=== PATIENT | female | born 1960 | race Caucasian/White ===

== ENCOUNTER 2022-05-05 19:25 | Emergency (ER) | payer MEDICARE ==
[~2022-05-05] VITALS: Ht 154.9 cm; Wt 66.2 kg
[2022-05-05] MEDS ORDERED: AMLODIPINE BESYLATE 5 MG TABLET ONE (20:27)
[2022-05-05] MEDS ORDERED: ATORVASTATIN 10 MG TABLET ONE (20:27)
[2022-05-05] MEDS ORDERED: AMLODIPINE BESYLATE 5 MG TABLET PO ONE (20:30)
[2022-05-05] MEDS ORDERED: AMLO-212 PO (20:35)
[2022-05-05] MEDS ORDERED: ATOR10TA PO (20:36)
--- NOTE | 2022-05-05 20:37 | NUR ---
Patient discharged to home in stable condition. Written and verbal after care instructions given. Patient verbalizes understanding of instruction. Pt ambulatory with a steady gait
[2022-05-05 20:38] VITALS: BP 146/81
[2022-05-05] MEDS ORDERED: ATORVASTATIN 10 MG TABLET PO SCH (22:00)
== END 2022-05-05 20:50 | disposition home or self-care (01) ==
LOC: ER 19:32
DX: I10 Essential (primary) hypertension (principal); Z76.0 Encounter for issue of repeat prescription; E78.5 Hyperlipidemia, unspecified; Z60.2 Problems related to living alone; Z79.899 Other long term (current) drug therapy